=== PATIENT | male | born 1940 | race Caucasian/White ===

== ENCOUNTER → 2023-10-09 08:26 | Outpatient (CLI) | payer MEDICARE, OTHER, SELFPAY ==
--- NOTE | 2023-10-09 | DI.RAD.S_ITS ---
PROCEDURE: FL BARIUM SWALLOW W SPEECH INDICATIONS: Thickened esophagus COMPARISON: None. TECHNIQUE: Examination was conducted in conjunction with speech pathology per standard protocol. In the lateral projection, filming was performed of the patient swallowing. AP projection filming may also be performed with patient swallowing. COMPARISON: FINDINGS: Function: Laryngeal penetration and aspiration with multiple forms of liquid barium. Poor esophageal motility. Morphology: No cricopharyngeal bar is identified. No cervical esophageal webs. No Zenker's diverticulum. No strictures. IMPRESSION: Laryngeal penetration and aspiration with multiple forms of liquid barium. Dictated by: Bhavesh Muñoz M.D. on 10/09/2023 at 10:38 Approved by: Bhavesh Muñoz M.D. on 10/09/2023 at 10:43
--- NOTE | 2023-10-09 11:52 | ST.SWALLOW ---
Visit Care Team Role Provider Type Jt Lee MD Primary Care Provider Non-Staff Specialty: Internal Medicine Address: [address] [facility], [place], [address] Email: Memo Orta MD Attending Provider Physician Referring Provider Specialty: General Surgery Address: [address] [place], [address] Email: Modified Barium Swallow Study SUPPORT SPECIALIST Modified Barium Swallow Study Start: 10/09/23 09:45 Freq: Status: Active Protocol: Document 10/09/23 09:46 LNK (Rec: 10/09/23 09:48 LNK [id number]) Modified Barium Swallow Study Total Time Visit Start Time 09:00 Visit Stop Time 09:30 Total Visit Minutes [address] Memo Orta Reason for Referral Dysphagia Setting Setting Outpatient Care Patient Information Identification Type Name,Date of Patient History Pt report difficulty with swallowing breads and dry foods. He reported that when he swallows, foods get stuck ( points to sternum). Approximately 4-6 weeks ago the pt was swallowing pills and one became stuck until it dissolved. Afterward, pt noticed a change in his voice (breathy) at that time. Pt stated he is able to relieve the globus sensation with liquids. Pt denied swallow difficulty with liquids. Pt reported a PMH that includes smoker (quit 1998), cancer x3, including lung cancer. Pt currently is on O2 as he only has one lung remaining. He denied neurological diagnoses and head/neck injury or surgery. Subjective Observations Pt was seated in the fluoroscopy chair with directions and procedures described for him. He indicated he understood and agreed to proceed. Patient Positioning Position View Lat-A/P Imaging Lateral View Textures Administered Trials Presented Thin Liquid via Spoon (IDDSI 0 ),Thin Liquid via Cup (IDDSI 0 ),Mildly Thick Liquid via Spoon (IDDSI 2),Mildly Thick Liquid via Cup (IDDSI 2), Extremely Thick Liquid via Spoon (IDDSI 4),Regular (IDDSI 7) Barium Tablet Yes The IDDSI Framework Protocol: IDDSI.1 Oral Impairment Source: The Modified Barium Swallow Impairment Profile (MBSImP??) Lip Closure No labial escape Tongue Control During Bolus Hold Cohesive bolus between tongue to palatal seal Bolus Preparation/Mastication Slow prolonged chewing/mashing with complete re-collection Bolus Transport/Lingual Motion Delayed initiation of tongue motion Oral Residue Trace residue lining oral structures Location Tongue Initiation of Pharyngeal Swallow Bolus head at pyriforms Additional Oral Impairment Observations *OME and DKS were observed to be WNL. *Mastication observed with rotary chew pattern. *Good bolus formation, control and AP transition. *Dentition missing molars in all 4 quadrants. *Delayed swallow initiation Pharyngeal Impairment Source: The Modified Barium Swallow Impairment Profile (MBSImP??) Soft Palate Elevation No bolus between soft palate & pharyngeal wall Laryngeal Elevation Part.sup.move.thyroid cart/ part.approx.arytenoids to epiglot.petiole Anterior Hyoid Excursion Partial anterior movement Epiglottic Movement Partial inversion Laryngeal Vestibular Closure Incomplete; narrow column air/ contrast in laryngeal vestibule Pharyngeal Stripping Wave Absent Pharyngoesophageal Segment Opening Partial distention/partial duration; partial obstruction of flow Tongue Base Retraction Wide column of contrast/air betwn tongue base & post. pharyngeal wall Pharyngeal Residue Collection of residue within/ on pharyngeal structures Location Diffuse (>3 areas) Additional Pharyngeal Impairment *Moderate reduction in tongue Observations base retraction strength *Reduced hyolaryngeal elevation *Inconsistent epiglottic inversion varying from no inversion to partial inversion (horizontal with tip curled against the posterior pharyngeal wall) *Weak seal of laryngeal vestibule *PAS-5 Contrast penetration into the laryngeal vestibule ( Penetrates larynx contacts folds, visible laryngeal residue) *PAS-8 Randy tracheal aspiration x3 (Below folds, no response effort, tracheal residue) Cued cough did not clear trachea *Diffuse contrast residue in pharynx - primarily in valeculla - especially solid trials, minimal clearance without liquid wash, partially cleared with liquid sip PT IS HIGH SILENT ASPIRATION RISK * Chin tuck with a double swallow strategies were effective in reducing risk for aspiration A/P View Textures Administered Trials Presented Thin Liquid via Cup (IDDSI 0), Mildly Thick Liquid via Spoon (IDDSI 2) The IDDSI Framework Protocol: IDDSI.1 A/P View Observations Pharyngeal Contraction Unilateral bulging Esophageal Clearance Upright Position Esophageal retention Esophageal Function Slowed Clearing,Poor Motility, Stasis Additional A-P Observations *Esophageal retention observed throughout esophagus. This partially cleared with water wash. *Barium tablet cleared esophagus as expected. Clinical Impressions Dysphagia Type Pharyngeal,Esophageal Findings *Weak pharygeal structures and function *Pt is silent aspiration risk (see pharyngeal phase description). *Esophageal retention observed with slow motility *Recommend ENT referral to r/o vocal fold paralysis/paresis/bowing (re: breathy vocal quality) *GI referral *Outpatient Swallow therapy recommended targeting safe swallow strategy education and base of tongue/ pharyngeal exercise program *Reviewed results and recommendations with pt and daughter Rehabilitation Potential Good Patient Appropriate for Therapy Yes Recommendations Diet Liquids Order Thin (IDDSI 0) Diet Order Regular (IDDSI 7) Medication Recommendation Whole,Whole in Carrier,One at a Time Comments Chin tuck with double swallow recommended to reduce aspiration risk Additional Dietary Needs Single Sips Aspiration Precautions Recommended Precautions Upright at 90 Degrees,Chin Tuck,Double Swallow,Liquids from Cup Treatment Plan Therapy Recommendations Outpatient Speech Therapy,Base of Tongue Exercises Recommended Referrals GI Consult,ENT Consult Therapy Strategy Recommendations Reclined Position,Chin Tuck, Double Swallow,No Straw, Liquids from Cup,Small Bites and Sips
== END ==
LOC: RAD 08:32
PROVIDERS: PCP Internal Medicine; Referring Provider Surgery; Visit Provider Surgery
DX: K22.89 Other specified disease of esophagus (principal)
CPT/HCPCS: 74230; 92611